=== PATIENT | male | born 1940 | race Caucasian/White ===

== ENCOUNTER 2018-11-26 00:20 | Inpatient (IN) | payer OTHER ==
[2018-11-26] MEDS: CEFEPIME 2GM/50 ML (PMX) 50 ML IVPB (00:40)
[2018-11-26] MEDS: ACETAMINOPHEN 325 MG TAB PO (00:40)
[2018-11-26] MEDS: SODIUM CHLORIDE 0.9% 1L BAG IV* (00:41)
[2018-11-26 00:45] LABS: ADD MAN DIFF? NO
[2018-11-26 00:47] LABS: BASOPHILS % 0.4 % (0.0-2.0); EOSINOPHILS # 0.1 10^3/ul (0.0-0.5); EOSINOPHILS % 1.2 % (0.0-7.0); HEMATOCRIT 35.2 % (42.0-52.0); HEMOGLOBIN 11.3 g/dl (14.0-18.0); LYMPHOCYTES # 1.3 10^3/ul (0.8-2.9); LYMPHOCYTES % 14.2 % (15.0-51.0); MEAN CORPUSCULAR HEMOGLOBIN 27.2 pg (29.0-33.0); MEAN CORPUSCULAR HGB CONC 32.1 g/dl (32.0-37.0); MEAN CORPUSCULAR VOLUME 84.8 fl (82.0-101.0); MONOCYTES % 10.5 % (0.0-11.0); NEUTROPHIL # 6.9 10^3/ul (1.6-7.5); PLATELET COUNT 261 10^3/UL (140-415); RED BLOOD COUNT 4.15 10^6/ul (4.70-6.10); RED CELL DISTRIBUTION WIDTH 14.9 % (11.5-14.5)
[2018-11-26 00:47] LABS: WHITE BLOOD COUNT 9.5 10^3/ul (4.8-10.8)
[2018-11-26 01:04] LABS: ALANINE AMINOTRANSFERASE 68 IU/L (13-69); ALBUMIN 4.1 g/dl (3.3-4.9); ALKALINE PHOSPHATASE 76 IU/L (42-121); ANION GAP 13 (5-13); ASPARTATE AMINO TRANSFERASE 70 IU/L (15-46); BILIRUBIN,INDIRECT 0.3 mg/dl (0-1.1); BILIRUBIN,TOTAL 0.3 mg/dl (0.2-1.3); BLOOD UREA NITROGEN 44 mg/dl (7-20); CALCIUM 10.1 mg/dl (8.4-10.2); CARBON DIOXIDE 19 mmol/L (21-31); CHLORIDE 100 mmol/L (97-110); CREATININE 2.13 mg/dl (0.61-1.24); GLUCOSE 203 mg/dl (70-220); POTASSIUM 5.6 mmol/L (3.5-5.1); SODIUM 132 mmol/L (135-144); TOTAL PROTEIN 7.8 g/dl (6.1-8.1)
[2018-11-26 01:10] LABS: INR 1.15; PROTIME 14.8 Sec (11.9-14.9); PT RATIO 1.2
[2018-11-26 01:11] LABS: PARTIAL THROMBOPLASTIN TIME 40.5 Sec (23.0-35.0)
[2018-11-26 01:16] LABS: TROPONIN-I 0.022 ng/ml (0.000-0.120)
[2018-11-26] MEDS: VANCOMYCIN 1 GM (PMX) 250 ML IVPB (01:19)
[2018-11-26] MEDS: CEFEPIME 1GM/50 ML (PMX) 50 ML IVPB (01:35)
[2018-11-26] MEDS: ONDANSETRON 4 MG INJ IV ×2 (01:38→12:46)
[2018-11-26] MEDS: morphine 4 MG/ML VIAL IV (01:39)
[2018-11-26] MEDS ORDERED: ACETAMINOPHEN 325 MG TAB PO (02:00)
[2018-11-26 02:39] LABS: ADD UMIC NO; UR ASCORBIC ACID 20 mg/dL (NEGATIVE); UR BILIRUBIN (Dip) NEGATIVE (NEGATIVE); UR BLOOD (Dip) NEGATIVE (NEGATIVE); UR CLARITY CLEAR (CLEAR); UR COLOR YELLOW (YELLOW); UR GLUCOSE (Dip) 3+ mg/dL (NEGATIVE); UR KETONES (Dip) TRACE mg/dL (NEGATIVE); UR LEUKOCYTE ESTERASE (Dip) NEGATIVE Leu/ul (NEGATIVE); UR NITRITE (Dip) NEGATIVE (NEGATIVE); UR SPECIFIC GRAVITY (Dip) 1.017 (1.003-1.030); UR TOTAL PROTEIN (Dip) NEGATIVE (NEGATIVE); UR UROBILINOGEN (Dip) NEGATIVE (NEGATIVE)
[2018-11-26 04:19] LABS: LACTIC ACID 0.8 mmol/L (0.5-2.0)
[2018-11-26 06:19] LABS: LACTIC ACID 0.8 mmol/L (0.5-2.0)
[2018-11-26] MEDS ORDERED: DOCUSATE SODIUM 100 MG CAP PO (09:30)
[2018-11-26] MEDS ORDERED: NACL 0.9% 3 ML SYG IV (09:30)
[2018-11-26 09:52] LABS: CREATINE KINASE 116 IU/L (23-200)
[2018-11-26 09:57] LABS: D-DIMER 2638.43 ng/ml (<460)
[2018-11-26 10:05] LABS: CK INDEX 1.7; CK-MB 1.99 ng/ml (0.0-2.4); TROPONIN-I 0.015 ng/ml (0.000-0.120)
[2018-11-26] MEDS: ASPIRIN (EC) 81 MG TAB PO (10:06)
[2018-11-26] MEDS: AMLODIPINE 10 MG TAB PO (10:06)
[2018-11-26] MEDS: CEFTRIAXONE 1 GM/50 ML (PMX) 50 ML IVPB (10:08)
[2018-11-26] MEDS: SOD CHLORIDE 0.9% 1,000 ML IV ×2 (10:19→19:03)
[2018-11-26] MEDS ORDERED: GLUCAGON 1 MG INJ IM (11:00)
[2018-11-26] MEDS ORDERED: DEXTROSE 50% 50 ML SYRINGE IV ×2 (11:00)
[2018-11-26] MEDS ORDERED: GLUCOSE GEL 15 GRAM TUBE PO ×2 (11:00)
[2018-11-26] MEDS ORDERED: GLUCOSE GEL 15 GRAM TUBE BUCCAL (11:00)
[2018-11-26] MEDS: AZITHROMYCIN 500MG/NS (PMX) 250 ML IV (11:02)
[2018-11-26] MEDS: HYDROCODONE/APAP (5/325) TAB PO ×2 (12:40→20:44)
[2018-11-26] MEDS: IPRATROPIUM (NEB) 0.5 MG/2.5 ML AMP NEB ×3 (13:10→20:31)
[2018-11-26] MEDS: ALBUTEROL 0.083% (NEB) 2.5 MG/3 ML AMP NEB ×3 (13:10→20:31)
[2018-11-26] MEDS: METHYLPREDNISOLONE 125 MG INJ IV ×2 (13:48→22:56)
[2018-11-26] MEDS: GABAPENTIN 300 MG CAP PO ×2 (13:48→20:44)
[2018-11-26] MEDS: NA BICARBONATE 8.4% 50 ML SYG IV (14:03)
[2018-11-26] MEDS: INSULIN ASPART [NOVOLOG] 3 ML PEN SC ×3 (14:09→20:46)
[2018-11-26 16:00] LABS: CREATINE KINASE 118 IU/L (23-200)
[2018-11-26 16:12] LABS: CK INDEX 1.5; CK-MB 1.79 ng/ml (0.0-2.4); TROPONIN-I 0.017 ng/ml (0.000-0.120)
[2018-11-26] MEDS: SODIUM BICARBONATE (IV ADD) 50 MEQ in SOD CHLORIDE 0.45% 1,000 ML IV (17:40)
[2018-11-26 19:50] LABS: HIV 1&2 ANTIBODY NEGATIVE (NEGATIVE)
[2018-11-26] MEDS: ATORVASTATIN 80 MG TAB PO (20:44)
[2018-11-26] MEDS: INSULIN GLARGINE [LANTus] (100 UNITS/ML) SYG SC ×2 (20:45→22:57)
[2018-11-27] MEDS: ALBUTEROL 0.083% (NEB) 2.5 MG/3 ML AMP NEB ×6 (00:20→20:36)
[2018-11-27] MEDS: IPRATROPIUM (NEB) 0.5 MG/2.5 ML AMP NEB ×6 (00:20→20:36)
[2018-11-27] MEDS: SOD CHLORIDE 0.9% 1,000 ML IV ×2 (05:03→15:35)
[2018-11-27] MEDS: METHYLPREDNISOLONE 125 MG INJ IV ×3 (05:41→20:37)
[2018-11-27 08:36] LABS: ADD MAN DIFF? NO
[2018-11-27 08:39] LABS: WHITE BLOOD COUNT 6.3 10^3/ul (4.8-10.8)
[2018-11-27 08:39] LABS: BASOPHILS % 0.5 % (0.0-2.0); HEMATOCRIT 34.6 % (42.0-52.0); HEMOGLOBIN 10.9 g/dl (14.0-18.0); LYMPHOCYTES % 15.8 % (15.0-51.0); MEAN CORPUSCULAR HGB CONC 31.5 g/dl (32.0-37.0); MEAN CORPUSCULAR VOLUME 85.6 fl (82.0-101.0); MEAN PLATELET VOLUME 10.2 fl (7.4-10.4); MONOCYTE # 0.3 10^3/ul (0.3-0.9); MONOCYTES % 5.3 % (0.0-11.0); NEUTROPHIL # 4.8 10^3/ul (1.6-7.5); PLATELET COUNT 290 10^3/UL (140-415); RED BLOOD COUNT 4.04 10^6/ul (4.70-6.10); RED CELL DISTRIBUTION WIDTH 15.2 % (11.5-14.5)
[2018-11-27 08:50] LABS: HEMOGLOBIN A1C 8.2 % (0-5.9)
[2018-11-27] MEDS: INSULIN ASPART [NOVOLOG] 3 ML PEN SC ×4 (08:52→20:51)
[2018-11-27] MEDS: SPIRONOLACTONE 50 MG TAB PO (08:54)
[2018-11-27] MEDS: ASPIRIN (EC) 81 MG TAB PO (08:54)
[2018-11-27] MEDS: METOPROLOL (XL) 50 MG TAB PO (08:55)
[2018-11-27] MEDS: GABAPENTIN 300 MG CAP PO ×3 (08:55→20:36)
[2018-11-27] MEDS: NICOTINE (21 MG/24 HR) PATCH TRANSDERM (08:59)
[2018-11-27] MEDS: ENOXAPARIN 30 MG/0.3 ML SYG SC (09:00)
[2018-11-27 09:15] LABS: ALANINE AMINOTRANSFERASE 82 IU/L (13-69); ALBUMIN/GLOBULIN RATIO 1.11; ALKALINE PHOSPHATASE 72 IU/L (42-121); ANION GAP 13 (5-13); ASPARTATE AMINO TRANSFERASE 89 IU/L (15-46); BILIRUBIN,INDIRECT 0.3 mg/dl (0-1.1); BILIRUBIN,TOTAL 0.3 mg/dl (0.2-1.3); BLOOD UREA NITROGEN 39 mg/dl (7-20); CALCIUM 9.9 mg/dl (8.4-10.2); CARBON DIOXIDE 23 mmol/L (21-31); CHLORIDE 102 mmol/L (97-110); CHOLESTEROL 144 mg/dl (100-200); CREATININE 1.27 mg/dl (0.61-1.24); GLUCOSE 351 mg/dl (70-220); HDL CHOLESTEROL 13 mg/dl (31-75); LDL CHOLESTEROL,CALCULATED 40 mg/dl; MAGNESIUM 2.5 mg/dl (1.7-2.5); POTASSIUM 5.2 mmol/L (3.5-5.1); SODIUM 138 mmol/L (135-144); TOTAL PROTEIN 7.6 g/dl (6.1-8.1); TRIGLYCERIDES 456 mg/dl (0-149)
[2018-11-27] MEDS: AZITHROMYCIN 500MG/NS (PMX) 250 ML IV (09:38)
[2018-11-27] MEDS: CEFTRIAXONE 1 GM/50 ML (PMX) 50 ML IVPB (10:55)
[2018-11-27] MEDS: FISH OIL 1,000 MG CAP PO ×2 (10:55→20:36)
[2018-11-27] MEDS: INSULIN GLARGINE [LANTus] (100 UNITS/ML) SYG SC ×2 (11:39→20:49)
[2018-11-27] MEDS: CEFEPIME 1GM/50 ML (PMX) 50 ML IVPB ×2 (12:49→20:38)
[2018-11-27] MEDS: ATORVASTATIN 80 MG TAB PO (20:36)
[2018-11-27] MEDS: HYDROCODONE/APAP (5/325) TAB PO (20:37)
[2018-11-27] MEDS ORDERED: INSULIN GLARGINE [LANTus] (100 UNITS/ML) SYG SC (21:00)
[2018-11-28] MEDS: ALBUTEROL 0.083% (NEB) 2.5 MG/3 ML AMP NEB ×6 (00:19→22:05)
[2018-11-28] MEDS: IPRATROPIUM (NEB) 0.5 MG/2.5 ML AMP NEB ×6 (00:19→22:05)
[2018-11-28] MEDS: SOD CHLORIDE 0.9% 1,000 ML IV ×3 (00:48→14:25)
[2018-11-28] MEDS: ACETAMINOPHEN 500 MG TAB PO (00:49)
[2018-11-28] MEDS: ZOLPIDEM 5 MG TAB PO (00:49)
[2018-11-28 07:30] LABS: WHITE BLOOD COUNT 6.6 10^3/ul (4.8-10.8)
[2018-11-28 07:30] LABS: ADD MAN DIFF? NO; HEMATOCRIT 33.1 % (42.0-52.0); HEMOGLOBIN 10.3 g/dl (14.0-18.0); LYMPHOCYTES # 0.9 10^3/ul (0.8-2.9); LYMPHOCYTES % 14.2 % (15.0-51.0); MEAN CORPUSCULAR HEMOGLOBIN 26.4 pg (29.0-33.0); MEAN CORPUSCULAR HGB CONC 31.1 g/dl (32.0-37.0); MEAN CORPUSCULAR VOLUME 84.9 fl (82.0-101.0); MEAN PLATELET VOLUME 10.6 fl (7.4-10.4); MONOCYTE # 0.5 10^3/ul (0.3-0.9); MONOCYTES % 8.1 % (0.0-11.0); PLATELET COUNT 298 10^3/UL (140-415); RED CELL DISTRIBUTION WIDTH 15.5 % (11.5-14.5)
[2018-11-28 07:50] LABS: ALANINE AMINOTRANSFERASE 184 IU/L (13-69); ALBUMIN 3.7 g/dl (3.3-4.9); ALBUMIN/GLOBULIN RATIO 1.19; ALKALINE PHOSPHATASE 72 IU/L (42-121); ANION GAP 12 (5-13); ASPARTATE AMINO TRANSFERASE 170 IU/L (15-46); BILIRUBIN,INDIRECT 0.2 mg/dl (0-1.1); BILIRUBIN,TOTAL 0.2 mg/dl (0.2-1.3); BLOOD UREA NITROGEN 47 mg/dl (7-20); CALCIUM 9.2 mg/dl (8.4-10.2); CARBON DIOXIDE 21 mmol/L (21-31); CHLORIDE 104 mmol/L (97-110); CREATININE 1.23 mg/dl (0.61-1.24); POTASSIUM 4.9 mmol/L (3.5-5.1); SODIUM 137 mmol/L (135-144); TOTAL PROTEIN 6.8 g/dl (6.1-8.1)
[2018-11-28 07:52] LABS: GLUCOSE 401 mg/dl (70-220)
[2018-11-28 07:55] LABS: MAGNESIUM 2.4 mg/dl (1.7-2.5)
[2018-11-28 07:55] LABS: PHOSPHORUS 4.3 mg/dl (2.5-4.9)
[2018-11-28] MEDS: INSULIN ASPART [NOVOLOG] 3 ML PEN SC ×5 (08:32→21:29)
[2018-11-28] MEDS: INSULIN GLARGINE [LANTus] (100 UNITS/ML) SYG SC ×2 (08:32→20:36)
[2018-11-28] MEDS: SPIRONOLACTONE 50 MG TAB PO (08:34)
[2018-11-28] MEDS: GABAPENTIN 300 MG CAP PO ×3 (08:34→20:34)
[2018-11-28] MEDS: ASPIRIN (EC) 81 MG TAB PO (08:35)
[2018-11-28] MEDS: FISH OIL 1,000 MG CAP PO ×2 (08:35→20:34)
[2018-11-28] MEDS: METOPROLOL (XL) 50 MG TAB PO (08:36)
[2018-11-28] MEDS: NICOTINE (21 MG/24 HR) PATCH TRANSDERM (08:37)
[2018-11-28] MEDS: CEFEPIME 1GM/50 ML (PMX) 50 ML IVPB ×2 (08:38→20:35)
[2018-11-28] MEDS: ENOXAPARIN 30 MG/0.3 ML SYG SC (08:47)
[2018-11-28] MEDS: METHYLPREDNISOLONE 125 MG INJ IV (08:48)
[2018-11-28] MEDS: AZITHROMYCIN 500MG/NS (PMX) 250 ML IV (09:59)
[2018-11-28] MEDS ORDERED: LIDOCAINE 1% (MPF) 5 ML VIAL SC (13:30)
[2018-11-28] MEDS: ATORVASTATIN 80 MG TAB PO (20:34)
[2018-11-28] MEDS ORDERED: HYDROCODONE/APAP (5/325) TAB PO (21:00)
[2018-11-28] MEDS: HYDROCODONE/APAP (5/325) TAB PO (21:28)
[2018-11-29] MEDS: ALBUTEROL 0.083% (NEB) 2.5 MG/3 ML AMP NEB ×5 (01:00→17:38)
[2018-11-29] MEDS: IPRATROPIUM (NEB) 0.5 MG/2.5 ML AMP NEB ×5 (01:00→17:38)
[2018-11-29] MEDS: Insulin NOVOLOG SS MODERATE Algorithm(NPO/TPN/ENTERAL FEEDS) SC ×5 (01:27→17:00)
[2018-11-29] MEDS: ACCU-CHEK XX (02:00)
[2018-11-29] MEDS: SOD CHLORIDE 0.9% 1,000 ML IV (05:59)
[2018-11-29 06:05] LABS: ADD MAN DIFF? NO
[2018-11-29 06:14] LABS: WHITE BLOOD COUNT 7.9 10^3/ul (4.8-10.8)
[2018-11-29 06:14] LABS: ABNORMAL IP MESSAGE 1; BASOPHILS % 0.4 % (0.0-2.0); EOSINOPHILS % 0.3 % (0.0-7.0); HEMOGLOBIN 10.2 g/dl (14.0-18.0); LYMPHOCYTES # 1.9 10^3/ul (0.8-2.9); LYMPHOCYTES % 23.9 % (15.0-51.0); MEAN CORPUSCULAR HGB CONC 31.9 g/dl (32.0-37.0); MEAN CORPUSCULAR VOLUME 84.7 fl (82.0-101.0); MEAN PLATELET VOLUME 10.5 fl (7.4-10.4); MONOCYTE # 0.8 10^3/ul (0.3-0.9); NEUTROPHIL # 4.7 10^3/ul (1.6-7.5); NEUTROPHILS % 59.6 % (39.0-77.0); PLATELET COUNT 335 10^3/UL (140-415); POSITIVE DIFF @See below; RED BLOOD COUNT 3.78 10^6/ul (4.70-6.10); RED CELL DISTRIBUTION WIDTH 15.1 % (11.5-14.5)
[2018-11-29 06:46] LABS: MAGNESIUM 2.3 mg/dl (1.7-2.5)
[2018-11-29 06:46] LABS: PHOSPHORUS 3.1 mg/dl (2.5-4.9)
[2018-11-29 07:12] LABS: ALANINE AMINOTRANSFERASE 218 IU/L (13-69); ALBUMIN 3.4 g/dl (3.3-4.9); ALBUMIN/GLOBULIN RATIO 1.06; ALKALINE PHOSPHATASE 67 IU/L (42-121); ANION GAP 9 (5-13); ASPARTATE AMINO TRANSFERASE 163 IU/L (15-46); BILIRUBIN,INDIRECT 0.3 mg/dl (0-1.1); BILIRUBIN,TOTAL 0.3 mg/dl (0.2-1.3); BLOOD UREA NITROGEN 36 mg/dl (7-20); CALCIUM 9.1 mg/dl (8.4-10.2); CARBON DIOXIDE 22 mmol/L (21-31); CHLORIDE 110 mmol/L (97-110); CREATININE 0.98 mg/dl (0.61-1.24); GLUCOSE 238 mg/dl (70-220); POTASSIUM 4.5 mmol/L (3.5-5.1); SODIUM 141 mmol/L (135-144); TOTAL PROTEIN 6.6 g/dl (6.1-8.1)
[2018-11-29] MEDS ORDERED: INSULIN ASPART [NOVOLOG] 3 ML PEN SC (08:00)
[2018-11-29] MEDS: SPIRONOLACTONE 50 MG TAB PO (08:45)
[2018-11-29] MEDS: AZITHROMYCIN 500MG/NS (PMX) 250 ML IV (08:45)
[2018-11-29] MEDS: CEFEPIME 1GM/50 ML (PMX) 50 ML IVPB ×2 (08:45→17:40)
[2018-11-29] MEDS: ASPIRIN (EC) 81 MG TAB PO (08:45)
[2018-11-29] MEDS: FISH OIL 1,000 MG CAP PO (08:45)
[2018-11-29] MEDS: METOPROLOL (XL) 50 MG TAB PO (08:46)
[2018-11-29] MEDS: GABAPENTIN 300 MG CAP PO ×2 (08:46→12:31)
[2018-11-29] MEDS: INSULIN ASPART [NOVOLOG] 3 ML PEN SC ×3 (08:48→17:49)
[2018-11-29] MEDS: INSULIN GLARGINE [LANTus] (100 UNITS/ML) SYG SC (08:49)
[2018-11-29] MEDS: ENOXAPARIN 30 MG/0.3 ML SYG SC (08:50)
[2018-11-29] MEDS: NICOTINE (21 MG/24 HR) PATCH TRANSDERM (08:51)
[2018-11-29 09:18] LABS: ERYTHROBLAST% (NRBC) (M) 1 % (0-0); GIANT THROMBO% (M) 2 % (0-0); LYMPHOCYTES #M 2.3 10^3/ul (0.8-2.9); LYMPHOCYTES % (M) 30 % (15-51); METAMYELOCYTES %M 1 % (0-0); MONOCYTE #M 1.3 10^3/ul (0.3-0.9); MONOCYTES % (M) 17 % (0-11); PLATELET ESTIMATE NORMAL; POLYCHROMASIA 1+ (0-0); REACTIVE LYMPHOCYTES% (M) 1 % (0-0); SEGMENTED NEUTROPHILS (M) % 51 % (39-77); SMUDGE%M 9 % (0-0)
== END 2018-11-29 18:50 | disposition home health service (06) | DRG 190 ==
LOC: E/R 00:20 → 5EC 11-27 14:12
PROVIDERS: Internal Medicine
PROC: 02HV33Z Insertion of Infusion Device into Superior Vena Cava, Percutaneous Approach (ICD-10-PCS; principal; 2018-11-29)
PROC: B54NZZA Ultrasonography of Left Upper Extremity Veins, Guidance (ICD-10-PCS; 2018-11-29)
DX: J44.1 Chronic obstructive pulmonary disease with (acute) exacerbation (principal); J18.1 Lobar pneumonia, unspecified organism; N17.9 Acute kidney failure, unspecified; E87.1 Hypo-osmolality and hyponatremia; E87.5 Hyperkalemia; I10 Essential (primary) hypertension; F17.210 Nicotine dependence, cigarettes, uncomplicated; J44.0 Chronic obstructive pulmonary disease with (acute) lower respiratory infection; I25.10 Atherosclerotic heart disease of native coronary artery without angina pectoris; E78.5 Hyperlipidemia, unspecified; E11.42 Type 2 diabetes mellitus with diabetic polyneuropathy; Z79.82 Long term (current) use of aspirin; Z79.4 Long term (current) use of insulin; Z95.5 Presence of coronary angioplasty implant and graft
CPT/HCPCS: 36415; 36569; 71045; 71250; 76882-RT; 76937; 78582; 80053; 80061; 81003; 82550; 82553; 82962; 83036; 83605; 83735; 84100; 84484; 85025; 85378; 85610; 85730; 86703; 87040-91; 87081; 87086; 87400; 93005; 94640; 94664; 96374; 96375; 99285-25